=== PATIENT | male | born 1960 | race African-American/Black ===

== ENCOUNTER 2017-01-21 15:29 | Emergency (ER) | payer MEDICARE, MEDICAID ==
[~2017-01-21] VITALS: Ht 182.9 cm; Wt 94.0 kg
[~2017-01-21 15:29] MED LIST: OMEP20TA80 PO
[2017-01-21 15:47] VITALS: BP 131/78
[2017-01-21] MEDS: IBUPROFEN 800MG TABLET PO ONE ×2 (17:28→17:32)
== END 2017-01-21 19:16 | disposition home or self-care (01) ==
LOC: ER 17:49
DX: S63.502A Unspecified sprain of left wrist, initial encounter (principal); I10 Essential (primary) hypertension; Z88.0 Allergy status to penicillin; W01.0XXA Fall on same level from slipping, tripping and stumbling without subsequent striking against object, initial encounter; Y93.89 Activity, other specified; Y92.89 Other specified places as the place of occurrence of the external cause
CPT/HCPCS: 73110; 99284

== ENCOUNTER 2021-05-23 15:31 | Emergency (ER) | payer MEDICARE, MEDICAID ==
[~2021-05-23] VITALS: Ht 182.9 cm; Wt 94.0 kg
[~2021-05-23 15:31] MED LIST changes: +OMEP20TA2 PO; -OMEP20TA80 PO
[2021-05-23 15:56] VITALS: BP 129/78
[2021-05-23] MEDS ORDERED: CLINDAMYCIN PHOSPHATE 600MG/4ML VIAL IM ONE (16:30)
[2021-05-23] MEDS ORDERED: CLIN300C12 MT (16:39)
== END 2021-05-23 17:17 | disposition home or self-care (01) ==
LOC: ER 15:31
DX: K04.7 Periapical abscess without sinus (principal); Z88.0 Allergy status to penicillin; R22.0 Localized swelling, mass and lump, head
CPT/HCPCS: 96372; 99283; J3490